=== PATIENT | female | born 1955 | race Caucasian/White ===

== ENCOUNTER 2016-08-01 16:37 | Inpatient (IN) | payer MEDICAID, OTHER ==
[~2016-08-01] VITALS: Ht 157.5 cm; Wt 53.2 kg
[~2016-08-01 16:37] MED LIST: ALPR0.25 PO; HALD50IN IM; HALO10TA PO; LISI-515 PO; PRAZ1 PO; QUET5TAB PO
[2016-08-01 16:39] VITALS: BP 162/88; PULSE 94; RESP 24; TEMP 97.7; O2SAT 94
[2016-08-01 18:19] LABS: AUTOMATED NEUTROPHIL # 3.1 TH/MM3 (1.8-7.7); BASOPHIL % 0.7 % (0.0-2.0); EOSINOPHIL # 0.1 TH/MM3 (0-0.4); EOSINOPHIL % 2.2 % (0.0-4.0); HEMATOCRIT 38.4 % (35.0-46.0); HEMO FLAGS DIFF FINAL; LYMPH % 19.8 % (9.0-44.0); LYMPHOCYTE # 0.9 TH/MM3 (1.0-4.8); MEAN CELL VOLUME 93.5 FL (80.0-100.0); MEAN CORPUSCULAR HEMOGLOBIN 32.1 PG (27.0-34.0); MEAN CORPUSCULAR HGB CONC 34.3 % (32.0-36.0); MONO % 6.6 % (0.0-8.0); NEUT % 70.7 % (16.0-70.0); PLATELET COUNT 110 TH/MM3 (150-450); RED BLOOD COUNT 4.11 MIL/MM3 (4.00-5.30); RED CELL DISTRIBUTION WIDTH 14.1 % (11.6-17.2); WHITE BLOOD COUNT 4.5 TH/MM3 (4.0-11.0)
[2016-08-01 18:22] LABS: BACTERIA, URINE RARE /hpf; BLOOD, URINE NEG (NEG); COMMENT (UR) CULT NOT INDICATED; CULTURE IF INDICATED CULT NOT INDICATED; GLUCOSE,URINE NEG (NEG); KETONE, URINE NEG (NEG); MUCUS URINE FEW /lpf (OCC); NITRITE,URINE NEG (NEG); SQUAMOUS EPITHELIAL CELL URINE 2 /hpf (0-5); URINE COLOR YELLOW (YELLW/STRAW)
[2016-08-01 18:29] LABS: AMPHETAMINE, URINE NEG (NEG); BARBITURATES, URINE NEG (NEG); COCAINE, URINE NEG (NEG)
[2016-08-01 18:44] LABS: ANION GAP 8 MEQ/L (5-15); AST (GOT) 111 U/L (15-37); BICARBONATE 25.9 MEQ/L (21.0-32.0); BLOOD UREA NITROGEN 15 MG/DL (7-18); CHLORIDE 106 MEQ/L (98-107); GLOMERULAR FILTRATION RATE 63 ML/MIN (>89); POTASSIUM 3.6 MEQ/L (3.5-5.1); SODIUM (NA) 140 MEQ/L (136-145)
[2016-08-01 18:47] LABS: ALKALINE PHOSPHATASE 115 U/L (45-117); ALT (GPT) 122 U/L (10-53); TOTAL BILIRUBIN ADULT 0.8 MG/DL (0.2-1.0)
[2016-08-01 19:00] VITALS: BP 161/97; PULSE 87; RESP 18; TEMP 99; O2SAT 97
--- NOTE | 2016-08-01 20:10 | PD ---
HPI Chief Complaint: Psychiatric Symptoms Time Seen by Provider: 20:07 Travel History International Travel<30 days: No Contact w/Intl Traveler<30days: No Traveled to known affect area: No History of Present Illness HPI 61-year-old female that presents to the ED for evaluation of psych. Patient is Croatian-speaking only and I personally asked her if she feels comfortable my Croatian and she states that she does and she was offered interpretation but she declined at this time stating that she feels comfortable my Croatian. Patient has a chronic history of schizophrenia. Patient apparently has not been able to sleep for 5 days. She feels very depressed and anxious. Per patient she used to live in [place] and since living here in [place] she's been feeling that she is getting worse. Per patient she is taking her medications but does seem to be working. Per patient she needs something to help her stab lyse herself. She has any chest pain or shortness of breath. No cuts. No other medical prongs. She does have a history of asthma in the past but denies any shortness of breath at this time. She has allergies to Anaprox, aspirin and Motrin. She denies any other medical complaints. She does to me that she sees a psychiatrist but unclear as to the name. Her symptoms appeared to be moderate and seemed to be worsening for the past couple of days. PFSH Past Medical History Asthma: Yes Blood Disorders: No Anxiety: Yes Depression: Yes Cancer: No Cardiovascular Problems: Yes (Reported hx of HTN) Chemotherapy: No Diminished Hearing: No Endocrine: No Glaucoma: No Genitourinary: No Immune Disorder: No Musculoskeletal: No Neurologic: No Psychiatric: Yes (Hx of treatment for Bipolar Disorder and Schizophrenia) Reproductive: No Respiratory: No Radiation Therapy: No Past Surgical History Abdominal Surgery: No AICD: No Arteriovenous Shunt: No Cardiac Surgery: No Ear Surgery: No Endocrine Surgery: No Eye Surgery: No Genitourinary Surgery: No Gynecologic Surgery: Yes (HYSTERECTOMY) Insulin Pump: No Joint Replacement: No Oral Surgery: No Pacemaker: No Thoracic Surgery: No Other Surgery: Yes Social History Alcohol Use: No Tobacco Use: No (ONE PACK every 3 days according to patient. ) Substance Use: No Allergies-Medications (Allergen,Severity, Reaction): Coded Allergies: Anaprox (Verified Allergy, Mild, UNKNOWN, 08/01/16) Aspirin (Verified Allergy, Mild, KILLS HER, 08/01/16) Motrin (Verified Allergy, Mild, UNKNOWN, 08/01/16) Reported Meds & Prescriptions Reported Meds & Active Scripts Active Minipress (Prazosin HCl) 1 Mg Cap 2 Mg PO Q12HR Haloperidol 10 Mg Tab 10 Mg PO BID Haldol Decanoate Inj (Haloperidol Decanoate) 50 Mg/Ml Inj 100 Mg IM Q28D 28 Days Reported Quetiapine (Quetiapine Fumarate) 50 Mg Tab 50 Mg PO DAILY Alprazolam 0.25 Mg Tab 0.25 Mg PO Q6H PRN Lisinopril 20 Mg Tab 20 Mg PO DAILY Review of Systems Except as stated in HPI: all other systems reviewed are Neg Physical Exam Narrative GENERAL: SKIN: Warm and dry. HEAD: Atraumatic. Normocephalic. EYES: Pupils equal and round. No scleral icterus. No injection or drainage. ENT: No nasal bleeding or discharge. Mucous membranes pink and moist. Tongue is midline. No uvula deviation. NECK: Trachea midline. No JVD. CARDIOVASCULAR: Regular rate and rhythm. No murmurs, S3, S4. RESPIRATORY: No accessory muscle use. Clear to auscultation. Breath sounds equal bilaterally. GASTROINTESTINAL: Abdomen soft, non-tender, nondistended. Hepatic and splenic margins not palpable. MUSCULOSKELETAL: Extremities without clubbing, cyanosis, or edema. No obvious deformities. Full range of motion of the upper and lower extremities bilaterally. Pupils pulses bilaterally. NEUROLOGICAL: Awake and alert. No obvious cranial nerve deficits. Motor grossly within normal limits. Five out of 5 muscle strength in the arms and legs. Normal speech. PSYCHIATRIC: Depressed and anxious mood and affect; insight and judgment normal. Data Data Last Documented VS Vital Signs Date Time Temp Pulse Resp B/P Pulse Ox O2 Delivery O2 Flow Rate FiO2 08/01/16 19:00 99.0 87 18 161/97 97 Room Air Orders Complete Blood Count With Diff (08/01/16 17:14) Comprehensive Metabolic Panel (08/01/16 17:14) Urinalysis - C+S If Indicated (08/01/16 17:14) Psych Screen (08/01/16 17:14) Drug Screen, Random Urine (08/01/16 17:14) Lorazepam (Ativan) (08/01/16 20:15) Labs Laboratory Tests Test 08/01/16 17:20 White Blood Count 4.5 TH/MM3 Red Blood Count 4.11 MIL/MM3 Hemoglobin 13.2 GM/DL Hematocrit 38.4 % Mean Corpuscular Volume 93.5 FL Mean Corpuscular Hemoglobin 32.1 PG Mean Corpuscular Hemoglobin 34.3 % Concent Red Cell Distribution Width 14.1 % Platelet Count 110 TH/MM3 Mean Platelet Volume 8.5 FL Neutrophils (%) (Auto) 70.7 % Lymphocytes (%) (Auto) 19.8 % Monocytes (%) (Auto) 6.6 % Eosinophils (%) (Auto) 2.2 % Basophils (%) (Auto) 0.7 % Neutrophils # (Auto) 3.1 TH/MM3 Lymphocytes # (Auto) 0.9 TH/MM3 Monocytes # (Auto) 0.3 TH/MM3 Eosinophils # (Auto) 0.1 TH/MM3 Basophils # (Auto) 0.0 TH/MM3 CBC Comment DIFF FINAL Differential Comment Urine Color YELLOW Urine Turbidity CLEAR Urine pH 6.0 Urine Specific [place] 1.013 Urine Protein NEG mg/dL Urine Glucose (UA) NEG mg/dL Urine Ketones NEG mg/dL Urine Occult Blood NEG Urine Nitrite NEG Urine Bilirubin NEG Urine Urobilinogen 2.0 MG/DL Urine Leukocyte Esterase NEG Urine RBC 1 /hpf Urine WBC 1 /hpf Urine Squamous Epithelial 2 /hpf Cells Urine Bacteria RARE /hpf Urine Mucus FEW /lpf Microscopic Urinalysis Comment CULT NOT INDICATED Sodium Level 140 MEQ/L Potassium Level 3.6 MEQ/L Chloride Level 106 MEQ/L Carbon Dioxide Level 25.9 MEQ/L Anion Gap 8 MEQ/L Blood Urea Nitrogen 15 MG/DL Creatinine 0.90 MG/DL Estimat Glomerular Filtration 63 ML/MIN Rate Random Glucose 134 MG/DL Calcium Level 8.5 MG/DL Total Bilirubin 0.8 MG/DL Aspartate Amino Transf 111 U/L (AST/SGOT) Alanine Aminotransferase 122 U/L (ALT/SGPT) Alkaline Phosphatase 115 U/L Total Protein 7.4 GM/DL Albumin 3.1 GM/DL Urine Opiates Screen NEG Urine Barbiturates Screen NEG Urine Amphetamines Screen NEG Urine Benzodiazepines Screen POS Urine Cocaine Screen NEG Urine Cannabinoids Screen NEG MDM Medical Decision Making Medical Screen Exam Complete: Yes Emergency Medical Condition: Yes Medical Record Reviewed: Yes Interpretation(s) CBC & BMP Diagram 08/01/16 17:20 LFTs within normal limits. Tox screen positive for benzos. Differential Diagnosis Depression versus suicidal ideation versus anxiety versus adjustment disorder versus mood disorder versus bipolar disorder versus schizophrenia versus paranoid disorder versus psychosis versus substance abuse versus alcohol abuse versus alcohol induced psychosis versus homicidality addition versus cutting versus personality disorder Narrative Course 61-year-old female that presents to the ED for evaluation of psych. Patient was properly examined and was found to have signs and symptoms consistent with psychiatric illness. No sign of acute medical distress. Labs were done. Labs were essentially unremarkable. Patient was medically clear. Okay to be seen by psych. Mental health screening was discussed with the patient. Diagnosis Primary Impression: Schizoaffective disorder Qualified Code: F25.1 - Schizoaffective disorder, depressive type Flex Tyler Aug 01, 2016 20:10
[2016-08-01] MEDS ORDERED: LORazepam 1 MG TAB PO ONE (20:15)
[2016-08-01] MEDS: diphenhydrAMINE HCL 50 MG CAP PO PRN (20:24)
[2016-08-01] MEDS: HALOPERIDOL 10 MG TAB PO SCH (20:24)
[2016-08-01] MEDS: PRAZOSIN HCL 1 MG CAP PO SCH (21:17)
[2016-08-02 06:50] VITALS: BP 153/72; PULSE 68; RESP 18; TEMP 97.3; O2SAT 96
[2016-08-02] MEDS: PRAZOSIN HCL 1 MG CAP PO SCH ×2 (09:00→21:00)
[2016-08-02] MEDS: HALOPERIDOL 10 MG TAB PO SCH ×2 (09:00→21:00)
[2016-08-02 11:42] VITALS: BP 137/79; PULSE 81; RESP 17; O2SAT 97
--- NOTE | 2016-08-02 11:58 | PD ---
History of Present Illness Chief Complaint: Psychiatric Symptoms Time Seen by Provider: 11:45 Travel History International Travel<30 Days: No Contact w/Intl Traveler<30days: No Known affected area: No Legal Status Legal Status: Voluntary History of Present Illness: History of Present Illness HPI 61-year-old female with history of schizoaffective disorder that presents to the ED for evaluation. Patient reports that she has not slept in 5 days,is feeling very anxious, believes her medication is not working. Daughter who accompanies her confirms the patient's complaints. As per EMR she was last hosp at [facility] on Mar 08, 2016 under the care of Dr. Pryor and at that time she was exhibiting symptoms of psychosis. Current toxicology is positive for benzos. Patient is seen. She speaks mostly Croatian. She appears very anxious and restless. Speech is clear an d logical. She denies suicidal ideation, denies hallucinatory process. Patient is monitored in J pod and she was medicated with Ativan. This morning she reports that she had difficulty sleeping but was able to sleep some. She continues to report feeling very anxious as well as continues to report that current medication are not working. Telephone call to son Yemi [phone]. He reports that his mother has been anxious, not sleeping x 5 days, refusing to eat, and has refused her medication x 1 week. She has not had follow visit with a psychiatrist since her discharge from [facility]. Son also reports she found some old medications she had saved and was taken those without her son's knowledge. He does not know what medications she was taking. He expresses concern for the safety of his children as he fears her behaviro and sym,ptoms will escalate and she has a history of becoming agitated and aggressive. PFSH Past Medical History Asthma: Yes Blood Disorders: No Anxiety: Yes Depression: Yes Cancer: No Cardiovascular Problems: Yes (Reported hx of HTN) Chemotherapy: No Diminished Hearing: No Endocrine: No Glaucoma: No Genitourinary: No Immune Disorder: No Musculoskeletal: No Neurologic: No Psychiatric: Yes (Hx of treatment for Bipolar Disorder and Schizophrenia) Reproductive: No Respiratory: No Radiation Therapy: No Past Surgical History Abdominal Surgery: No AICD: No Arteriovenous Shunt: No Cardiac Surgery: No Ear Surgery: No Endocrine Surgery: No Eye Surgery: No Genitourinary Surgery: No Gynecologic Surgery: Yes (HYSTERECTOMY) Insulin Pump: No Joint Replacement: No Oral Surgery: No Pacemaker: No Thoracic Surgery: No Other Surgery: Yes Psychiatric History Psychiatric History Hx Psychiatric Treatment: PATIENT WAS LAST ADMITTED TO [facility] FROM 03/08/16 TO 03/26/16 FOR SCHIZOPHRENIA. History of Inpatient Treatment: Yes (Multiple hospitalizations reported. ) Guns or firearms in home: No Social History Single female, lives with her son and his family. Unemployed. Hx Alcohol Use: No Hx Tobacco Use: No (ONE PACK every 3 days according to patient. ) Hx Substance Use: Yes (Last used cocaine 20 years ago.) Hx of Substance Use Treatment: No Family Psychiatric History Negative Allergies-Medications (Allergen,Severity, Reaction): Coded Allergies: Anaprox (Verified Allergy, Mild, UNKNOWN, 08/01/16) Aspirin (Verified Allergy, Mild, KILLS HER, 08/01/16) Motrin (Verified Allergy, Mild, UNKNOWN, 08/01/16) Reported Meds & Prescriptions Reported Meds & Active Scripts Active Minipress (Prazosin HCl) 1 Mg Cap 2 Mg PO Q12HR Haloperidol 10 Mg Tab 10 Mg PO BID Haldol Decanoate Inj (Haloperidol Decanoate) 50 Mg/Ml Inj 100 Mg IM Q28D 28 Days Reported Quetiapine (Quetiapine Fumarate) 50 Mg Tab 50 Mg PO DAILY Alprazolam 0.25 Mg Tab 0.25 Mg PO Q6H PRN Lisinopril 20 Mg Tab 20 Mg PO DAILY Exam Alert: Yes Parish: Person (ox4) Mood: Anxious Affect: Restricted Speech: Clear, Logical Eye Contact: Normal Memory Intact: Comment (poor) Hallucinations: Other (deneis ) Suicidal: Ideation (deneis any) Homicidal: Ideation (deneis) Insight/Judgement Fair, not impaired [facility] Medical Decision Making Medical Record Reviewed: Yes Assessment/Plan 61 year old female with history of schizoaffective disorder who comes to ED reporting not sleeping x 5 days, feeling anxious, restless, and not taking prescribed medication x 1 week. She appears to be experiencing akathisia. At this time she will be admitted to inpatient psychiatric unit for safety, stabilization and medication adjustment Orders Complete Blood Count With Diff (08/01/16 17:14) Comprehensive Metabolic Panel (08/01/16 17:14) Urinalysis - C+S If Indicated (08/01/16 17:14) Psych Screen (08/01/16 17:14) Drug Screen, Random Urine (08/01/16 17:14) Lorazepam (Ativan) (08/01/16 20:15) Haloperidol (Haldol) (08/01/16 21:00) Prazosin (Minipress) (08/01/16 21:00) Diphenhydramine (Benadryl) (08/01/16 20:15) Diet Regular Basic (08/02/16 Breakfast) Results Vital Signs Date Time Temp Pulse Resp B/P Pulse Ox O2 Delivery O2 Flow Rate FiO2 08/02/16 11:42 81 17 137/79 97 Room Air 08/02/16 06:50 97.3 68 18 153/72 96 Room Air 08/01/16 19:00 99.0 87 18 161/97 97 Room Air 08/01/16 16:39 97.7 94 24 162/88 94 Room Air Laboratory Tests Test 08/01/16 17:20 White Blood Count 4.5 Red Blood Count 4.11 Hemoglobin 13.2 Hematocrit 38.4 Mean Corpuscular Volume 93.5 Mean Corpuscular Hemoglobin 32.1 Mean Corpuscular Hemoglobin 34.3 Concent Red Cell Distribution Width 14.1 Platelet Count 110 Mean Platelet Volume 8.5 Neutrophils (%) (Auto) 70.7 Lymphocytes (%) (Auto) 19.8 Monocytes (%) (Auto) 6.6 Eosinophils (%) (Auto) 2.2 Basophils (%) (Auto) 0.7 Neutrophils # (Auto) 3.1 Lymphocytes # (Auto) 0.9 Monocytes # (Auto) 0.3 Eosinophils # (Auto) 0.1 Basophils # (Auto) 0.0 CBC Comment DIFF FINAL Differential Comment Urine Color YELLOW Urine Turbidity CLEAR Urine pH 6.0 Urine Specific [place] 1.013 Urine Protein NEG Urine Glucose (UA) NEG Urine Ketones NEG Urine Occult Blood NEG Urine Nitrite NEG Urine Bilirubin NEG Urine Urobilinogen 2.0 Urine Leukocyte Esterase NEG Urine RBC 1 Urine WBC 1 Urine Squamous Epithelial 2 Cells Urine Bacteria RARE Urine Mucus FEW Microscopic Urinalysis Comment CULT NOT INDICATED Sodium Level 140 Potassium Level 3.6 Chloride Level 106 Carbon Dioxide Level 25.9 Anion Gap 8 Blood Urea Nitrogen 15 Creatinine 0.90 Estimat Glomerular Filtration 63 Rate Random Glucose 134 Calcium Level 8.5 Total Bilirubin 0.8 Aspartate Amino Transf 111 (AST/SGOT) Alanine Aminotransferase 122 (ALT/SGPT) Alkaline Phosphatase 115 Total Protein 7.4 Albumin 3.1 Urine Opiates Screen NEG Urine Barbiturates Screen NEG Urine Amphetamines Screen NEG Urine Benzodiazepines Screen POS Urine Cocaine Screen NEG Urine Cannabinoids Screen NEG Diagnosis Primary Impression: Schizoaffective disorder Admitting Information Admitting Physician Requests: Admit (Dr. Robles) Problem Qualifiers Primary Impression: Schizoaffective disorder Qualified Code: F25.0 - Schizoaffective disorder, bipolar type [place] Aug 02, 2016 11:58
[2016-08-02] MEDS: BENZTROPINE MESYLATE 1 MG TAB PO SCH ×2 (13:00→21:00)
[2016-08-02] MEDS: LISINOPRIL 20 MG TAB PO SCH (13:00)
[2016-08-02] MEDS ORDERED: ACETAMINOPHEN 325 MG TAB PO PRN (13:00)
[2016-08-02] MEDS ORDERED: MAGNESIUM HYDROXIDE SUSP 30 ML CUP PO PRN (13:00)
[2016-08-02] MEDS ORDERED: ALUMINUM/MAGNESIUM/SIMETH 30 ML CUP PO PRN (13:00)
[2016-08-02] MEDS ORDERED: LORazepam 1 MG TAB PO PRN (18:00)
[2016-08-02 18:04] VITALS: BP 118/70; PULSE 87; RESP 18; TEMP 98.1; O2SAT 98
[2016-08-03] MEDS: diphenhydrAMINE HCL 50 MG CAP PO PRN (01:10)
[2016-08-03 06:38] VITALS: BP 121/73; PULSE 92; RESP 18; TEMP 97.5; O2SAT 100
[2016-08-03 08:27] LABS: ANION GAP 7 MEQ/L (5-15); BICARBONATE 26.8 MEQ/L (21.0-32.0); BLOOD UREA NITROGEN 18 MG/DL (7-18); CHLORIDE 106 MEQ/L (98-107); GLOMERULAR FILTRATION RATE 56 ML/MIN (>89); HDL CHOLESTEROL 84.1 MG/DL (40.0-60.0); LDL CHOLESTEROL 41 MG/DL (0-99); POTASSIUM 3.6 MEQ/L (3.5-5.1); SODIUM (NA) 140 MEQ/L (136-145)
[2016-08-03] MEDS: HALOPERIDOL 10 MG TAB PO SCH ×2 (08:34→20:43)
[2016-08-03] MEDS: BENZTROPINE MESYLATE 1 MG TAB PO SCH ×2 (08:34→20:43)
[2016-08-03] MEDS: LISINOPRIL 20 MG TAB PO SCH (08:34)
[2016-08-03] MEDS: PRAZOSIN HCL 1 MG CAP PO SCH ×2 (08:34→20:43)
[2016-08-03] MEDS ORDERED: MAGNESIUM HYDROXIDE SUSP 30 ML CUP PO PRN (10:45)
[2016-08-03] MEDS ORDERED: ACETAMINOPHEN 325 MG TAB PO PRN (10:45)
[2016-08-03] MEDS ORDERED: ALUMINUM/MAGNESIUM/SIMETH 30 ML CUP PO PRN (10:45)
[2016-08-03] MEDS ORDERED: HALOPERIDOL DECANOATE 50 MG/ML VIAL IM SCH (11:00)
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
[2016-08-03 15:55] LABS: HEMOGLOBIN A1a 0.8 %; HEMOGLOBIN A1b 0.6 %; HEMOGLOBIN Ao 88.5 %; HEMOGLOBIN F 1.1 %; HEMOGLOBIN LA1C 1.6 %
--- NOTE | 2016-08-03 16:01 | PD.CONS ---
HPI Service [facility] Consult Requested By Psychiatry team Reason for Consult Patient on antihypertensive, needing assessment Primary Care Physician No Primary Care Physician Diagnoses: History of Present Illness Patient is a 61 year old female with primary medical history of hypertension, asthma, anxiety, depression, bipolar disorder and schizophrenia who came into the hospital for lack of sleep 5 days. Patient primarily speaks Guamanian. 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 Patient states that she has been having trouble sleeping at night. Stating her condition is worsening that she is too weak to walk and has multiple falls secondary to not being able to rest. She states that she was given some medication but feels that it was too strong for her that she wants the medication to be adjusted. She also states she stopped taking the medication. According to field radio technician patient is unable to verify what kind of medication she was taking. Patient is also unable to verify what medication for high blood pressure she was taking but states she has high blood pressure. Denies pain and discomfort. Denies SOB/ dyspnea. Denies chest pain, palpitations, headaches, dizziness. Denies fevers, chills, n/v/d. Review of Systems Except as stated in HPI: all other systems reviewed are Neg Past Family Social History Allergies: Coded Allergies: Anaprox (Verified Allergy, Mild, UNKNOWN, 08/01/16) Aspirin (Verified Allergy, Mild, KILLS HER, 08/01/16) Motrin (Verified Allergy, Mild, UNKNOWN, 08/01/16) Past Medical History Hypertension Asthma Depression Anxiety Bipolar Schizophrenia Bladder problems/prolapse? Past Surgical History Hysterectomy Reported Medications Minipress (Prazosin HCl) 1 Mg Cap 2 Mg PO Q12HR Haloperidol 10 Mg Tab 10 Mg PO BID Haldol Decanoate Inj (Haloperidol Decanoate) 50 Mg/Ml Inj 100 Mg IM Q28D 28 Days Reported Quetiapine (Quetiapine Fumarate) 50 Mg Tab 50 Mg PO DAILY Alprazolam 0.25 Mg Tab 0.25 Mg PO Q6H PRN Lisinopril 20 Mg Tab 20 Mg PO DAILY Active Ordered Medications Current Medications Medications (Trade) Dose Ordered Sig/Bhargavi Route Start Time Stop Time Status Last Admin (Haldol) 10 mg BID PO 08/01/16 21:00 08/03/16 08:34 (Minipress) 2 mg Q12HR PO 08/01/16 21:00 08/03/16 08:34 (Tylenol) 650 mg Q4H PRN PO 08/02/16 13:00 (Milk Of Magnesia Liq) 30 ml DAILY PRN PO 08/02/16 13:00 (Mag-Al Plus Susp Liq) 30 ml Q6H PRN PO 08/02/16 13:00 (Prinivil) 20 mg DAILY PO 08/02/16 13:00 08/03/16 08:34 (Cogentin) 1 mg BID PO 08/03/16 21:00 (Atarax) 50 mg Q6H PRN PO 08/03/16 10:45 (Haldol Decanoate Inj) 100 mg Q28D IM 08/04/16 08:00 (Lexapro) 10 mg DAILY PO 08/04/16 09:00 Family History Unable to provide family medical history Social History Denies alcohol use Denies tobacco use Denies illicit drug use Physical Exam Vital Signs Vital Signs Date Time Temp Pulse Resp B/P Pulse Ox O2 Delivery O2 Flow Rate FiO2 08/03/16 06:38 97.5 92 18 121/73 100 08/02/16 18:04 98.1 87 18 118/70 98 Physical Exam GENERAL: This is a well-nourished, well-developed patient, in no apparent distress. SKIN: No rashes, ecchymoses or lesions. Cool and dry. HEAD: Atraumatic. Normocephalic. No temporal or scalp tenderness. EYES: Pupils equal round and reactive. No scleral icterus. No injection or drainage. ENT: Nose without bleeding. Throat without erythema. Uvula midline. Airway patent. NECK: Trachea midline. No JVD or lymphadenopathy. Supple, nontender, no meningeal signs. CARDIOVASCULAR: Regular rate and rhythm without murmurs, gallops, or rubs. RESPIRATORY: Clear to auscultation. Breath sounds equal bilaterally. No wheezes , rales, or rhonchi. GASTROINTESTINAL: Abdomen soft, non-tender, nondistended. No hepato-splenomegaly , or palpable masses. No guarding. MUSCULOSKELETAL: Extremities without clubbing, cyanosis, or edema. NEUROLOGICAL: Awake and alert. Very focused on not being able to sleep. Motor and sensory grossly within normal limits. Normal speech. Laboratory Laboratory Tests Test 08/03/16 07:13 Sodium Level 140 Potassium Level 3.6 Chloride Level 106 Carbon Dioxide Level 26.8 Anion Gap 7 Blood Urea Nitrogen 18 Creatinine 1.00 Estimat Glomerular Filtration 56 Rate Random Glucose 86 Calcium Level 8.9 Triglycerides Level 49 Cholesterol Level 135 LDL Cholesterol 41 HDL Cholesterol 84.1 Cholesterol/HDL Ratio 1.60 Result Diagram: 08/01/16 1720 08/03/16 0713 Assessment and Plan Problem List: (1) Schizoaffective disorder, bipolar type ICD Code: F25.0 Status: Acute (2) HTN (hypertension) ICD Code: I10 Status: Chronic (3) Female bladder prolapse ICD Code: N81.10 Status: Chronic Assessment and Plan Patient is a 61 year old female with primary medical history of hypertension, asthma, anxiety, depression, bipolar disorder and schizophrenia who came into the hospital for lack of sleep 5 days. Patient primarily speaks Guamanian. Stratus interpretation was use, field radio technician [place] [id number]. Patient states that she has been having trouble sleeping at night. Stating her condition is worsening that she is too weak to walk and has multiple falls secondary to not being able to rest. She states that she was given some medication but feels that it was too strong for her that she wants the medication to be adjusted. She also states she stopped taking the medication. She is now admitted to inpatient psychiatry unit for further evaluation. Consulted for medical management. Schizoaffective disorder, bipolar type Insomnia - Managed by psychiatry team HTN - Continue home meds on lisinopril 20 mg by mouth daily, Minipress 2 mg every 12 - may also be used primarily secondary to PTSD? - Monitor BP trend Elevated AST and ALT - Previous admission labs reviewed. Patient has elevated AST and ALT since 2017. - Check hepatitis panel DVT prop ambulatory Thank you for this consultation. We will follow patient with you. Written by Linda Downs, acting as scribe for Dr. Be on 08/03/16 at 16: 00. All or portions of this note were transcribed by scribe [Linda Downs]. I, Dr. Nicki Be personally performed the history, physical exam, and medical decision making; and confirmed the accuracy of the information in the transcribed note. Authenticated by Dr. Nicki Be on 08/03/16 at 16:04. Code Status Full code Discussed Condition With Patient, nursing Linda Herrera Aug 03, 2016 16:01 Nicki Be MD Aug 03, 2016 16:04
[2016-08-03 17:57] VITALS: BP 138/68; PULSE 67; RESP 18; TEMP 98.6; O2SAT 97
[2016-08-03 21:01] LABS: BACTERIA, URINE RARE /hpf; BLOOD, URINE NEG (NEG); COMMENT (UR) CULT NOT INDICATED; CULTURE IF INDICATED CULT NOT INDICATED; GLUCOSE,URINE NEG (NEG); HYALINE CAST, URINE 1 /lpf (RARE); KETONE, URINE NEG (NEG); NITRITE,URINE NEG (NEG); PH, URINE 7.5 (5.0-8.5); SQUAMOUS EPITHELIAL CELL URINE 1 /hpf (0-5); URINE COLOR YELLOW (YELLW/STRAW)
[2016-08-03] MEDS: hydrOXYzine HCL 50 MG TAB PO PRN (22:50)
[2016-08-04 05:59] VITALS: BP 122/84; PULSE 73; RESP 18; TEMP 97.3; O2SAT 97
[2016-08-04] MEDS ORDERED: HALOPERIDOL DECANOATE 50 MG/ML VIAL IM SCH (08:00)
[2016-08-04 08:17] LABS: ALKALINE PHOSPHATASE 119 U/L (45-117); ALT (GPT) 103 U/L (10-53); ANION GAP 9 MEQ/L (5-15); AST (GOT) 91 U/L (15-37); BICARBONATE 22.8 MEQ/L (21.0-32.0); BLOOD UREA NITROGEN 16 MG/DL (7-18); CHLORIDE 111 MEQ/L (98-107); GLOMERULAR FILTRATION RATE 83 ML/MIN (>89); POTASSIUM 3.6 MEQ/L (3.5-5.1); SODIUM (NA) 143 MEQ/L (136-145); TOTAL BILIRUBIN ADULT 0.7 MG/DL (0.2-1.0)
[2016-08-04] MEDS: ESCITALOPRAM OXALATE 10 MG TAB PO SCH (09:00)
[2016-08-04] MEDS: BENZTROPINE MESYLATE 1 MG TAB PO SCH ×2 (09:00→20:30)
[2016-08-04] MEDS: LISINOPRIL 20 MG TAB PO SCH (09:00)
[2016-08-04] MEDS: HALOPERIDOL 10 MG TAB PO SCH ×2 (09:00→20:30)
[2016-08-04] MEDS: PRAZOSIN HCL 1 MG CAP PO SCH ×2 (09:00→20:30)
--- NOTE | 2016-08-04 14:00 | HHI.PYPN ---
Subjective Remarks Patient seen today with nurse Karla, chart review. There continues difficulty with communication due to patient's only speaking Bulgarian. Having a difficult time understanding my questions in Turkmen Patient did receive her Haldol decanoate this morning, has been compliant with medications. Patient states her paranoia and vigilance have decreased. There is still anxiety related to her prior noncompliance medication. Patient continues to isolate the very little interaction with staff or other patient's. Review of Systems Except as stated in HPI: all other systems reviewed are Neg Objective Alert: Yes [place]: Person (ox4) Mood: Anxious Affect: Restricted Memory Intact: Comment (poor) Hallucinations: Other (deneis ) Delusions: Yes (vague paranoia) Delusion Type: Paranoid Suicidal: Ideation (deneis any) Homicidal: Ideation (deneis) Insight/Judgement Very poor Labs Test 08/03/16 08/04/16 16:36 06:52 Urine Color YELLOW Urine Turbidity CLEAR Urine pH 7.5 Urine Specific [place] 1.011 Urine Protein NEG mg/dL Urine Glucose (UA) NEG mg/dL Urine Ketones NEG mg/dL Urine Occult Blood NEG Urine Nitrite NEG Urine Bilirubin NEG Urine Urobilinogen LESS THAN 2.0 MG/DL Urine Leukocyte Esterase NEG Urine WBC 1 /hpf Urine Squamous Epithelial 1 /hpf Cells Urine Amorphous Sediment RARE Urine Bacteria RARE /hpf Urine Hyaline Casts 1 /lpf Microscopic Urinalysis Comment CULT NOT INDICATED Sodium Level 143 MEQ/L Potassium Level 3.6 MEQ/L Chloride Level 111 MEQ/L Carbon Dioxide Level 22.8 MEQ/L Anion Gap 9 MEQ/L Blood Urea Nitrogen 16 MG/DL Creatinine 0.71 MG/DL Estimat Glomerular Filtration 83 ML/MIN Rate Random Glucose 75 MG/DL Calcium Level 8.3 MG/DL Total Bilirubin 0.7 MG/DL Aspartate Amino Transf 91 U/L (AST/SGOT) Alanine Aminotransferase 103 U/L (ALT/SGPT) Alkaline Phosphatase 119 U/L Total Protein 6.4 GM/DL Albumin 2.9 GM/DL Free Thyroxine 1.50 NG/DL Thyroid Stimulating Hormone 3.870 uIU/ML 3rd Gen Vitals/IOs Vital Signs Date Time Temp Pulse Resp B/P Pulse Ox O2 Delivery O2 Flow Rate FiO2 08/04/16 05:59 97.3 73 18 122/84 97 08/02/16 11:42 Room Air Assessment & Plan Problem List: (1) Schizoaffective disorder, bipolar type ICD Code: F25.0 Assessment & Plan Estimated LOS: days patient continues depressed with vague psychotic features mild paranoia. Compliant medications. For now continue treatment Justification for Cont. Inpt. At this time patient decompensate if placed in a lower level of care Discharge Planning To be determined Request HC Surrog/Guard Advoc?: No Adam Umanzor MD Aug 04, 2016 14:00
[2016-08-04 16:30] VITALS: BP 126/76; PULSE 68; RESP 16; TEMP 98.2; O2SAT 98
[2016-08-04] MEDS: hydrOXYzine HCL 50 MG TAB PO PRN (20:30)
[2016-08-05 05:25] VITALS: BP 108/61; PULSE 72; RESP 17; TEMP 99.4; O2SAT 96
[2016-08-05] MEDS: BENZTROPINE MESYLATE 1 MG TAB PO SCH ×2 (09:28→21:30)
[2016-08-05] MEDS: HALOPERIDOL 10 MG TAB PO SCH ×2 (09:28→21:30)
[2016-08-05] MEDS: LISINOPRIL 20 MG TAB PO SCH (09:28)
[2016-08-05] MEDS: ESCITALOPRAM OXALATE 10 MG TAB PO SCH (09:28)
[2016-08-05] MEDS: PRAZOSIN HCL 1 MG CAP PO SCH ×2 (09:28→21:31)
--- NOTE | 2016-08-05 13:18 | HHI.PYPN ---
Subjective Remarks Patient seen in her room with floor staff, compliant medications, patient calm cooperative still difficulty with the language but she appears to understand her somewhat today. She is compliant with her medications now does denies suicidality and is shaking her head that she does not hear voices. We need to contact patient's family to see about discharge plans if not today perhaps tomorrow if arrangements can be made Review of Systems Except as stated in HPI: all other systems reviewed are Neg Objective Alert: Yes [place]: Person (ox4) Mood: Anxious Affect: Restricted Memory Intact: Comment (poor) Hallucinations: Other Delusions: Yes (vague paranoia) Delusion Type: Paranoid (decreasing) Suicidal: Ideation (deneis any) Homicidal: Ideation (deneis) Insight/Judgement Very poor Vitals/IOs Vital Signs Date Time Temp Pulse Resp B/P Pulse Ox O2 Delivery O2 Flow Rate FiO2 08/05/16 05:25 99.4 72 17 108/61 96 08/02/16 11:42 Room Air Intake and Output 08/04/16 08/04/16 08/05/16 08:00 16:00 00:00 Intake Total 360 ml Balance 360 ml Assessment & Plan Problem List: (1) Schizoaffective disorder, bipolar type ICD Code: F25.0 Assessment & Plan Estimated LOS: days patient continue somewhat depressed though appears to be responding to medication, psychosis appears to be diminishing. Need to contact patient's family to discuss discharge plans Justification for Cont. Inpt. At this time patient decompensate placed in a lower level of care Discharge Planning To be determined Request HC Surrog/Guard Advoc?: No Adam Umanzor MD Aug 05, 2016 13:18
--- NOTE | 2016-08-05 14:56 | HHI.PR ---
Subjective Remarks Follow-up visit HTN, insomnia, bipolar, schizophrenia. Patient seen today. Appears calm and smiling. Denies pain and discomfort. Denies SOB/ dyspnea. Denies chest pain, palpitations, headaches, dizziness. Denies fevers, chills, n/ v/d. Objective Vitals Vital Signs Date Time Temp Pulse Resp B/P Pulse Ox O2 Delivery O2 Flow Rate FiO2 08/05/16 05:25 99.4 72 17 108/61 96 08/04/16 16:30 98.2 68 16 126/76 98 I/O 08/04/16 08/04/16 08/04/16 08/05/16 08/05/16 08/05/16 07:00 15:00 23:00 07:00 15:00 23:00 Intake Total 360 ml Balance 360 ml Intake Oral 360 ml Result Diagram: 08/01/16 1720 08/04/16 0652 Objective Remarks GENERAL: This is a petite, well-developed patient, in no apparent distress. SKIN: No rashes, ecchymoses or lesions. Cool and dry. HEAD: Atraumatic. Normocephalic. No temporal or scalp tenderness. EYES: Pupils equal round and reactive. No scleral icterus. No injection or drainage. ENT: Nose without bleeding. Throat without erythema. Uvula midline. Airway patent. NECK: Trachea midline. No JVD or lymphadenopathy. Supple, nontender, no meningeal signs. CARDIOVASCULAR: Regular rate and rhythm without murmurs, gallops, or rubs. RESPIRATORY: Clear to auscultation. Breath sounds equal bilaterally. No wheezes , rales, or rhonchi. GASTROINTESTINAL: Abdomen soft, non-tender, nondistended. No hepato-splenomegaly , or palpable masses. No guarding. MUSCULOSKELETAL: Extremities without clubbing, cyanosis, or edema. NEUROLOGICAL: Awake and alert. Calm. Motor and sensory grossly within normal limits. Normal speech. A/P Problem List: (1) Schizoaffective disorder, bipolar type ICD Code: F25.0 Status: Acute (2) HTN (hypertension) ICD Code: I10 Status: Chronic (3) Female bladder prolapse ICD Code: N81.10 Status: Chronic Assessment and Plan Patient is a 61 year old female with primary medical history of hypertension, asthma, anxiety, depression, bipolar disorder and schizophrenia who came into the hospital for lack of sleep 5 days. Patient primarily speaks Slovenian. 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 Patient states that she has been having trouble sleeping at night. Stating her condition is worsening that she is too weak to walk and has multiple falls secondary to not being able to rest. She states that she was given some medication but feels that it was too strong for her that she wants the medication to be adjusted. She also states she stopped taking the medication. She is now admitted to inpatient psychiatry unit for further evaluation. Consulted for medical management. Schizoaffective disorder, bipolar type Insomnia - Managed by psychiatry team HTN - Continue home meds on lisinopril 20 mg by mouth daily, Minipress 2 mg every 12 - may also be used primarily secondary to PTSD? - Monitor BP trend Elevated AST and ALT - Previous admission labs reviewed. Patient has elevated AST and ALT since 2006. - Hx Hep C? Prior history of cocaine use - Check Hepatitis panel. If positive, will need to follow up GI or outpatient interviewing clerk as an outpatient. DVT prop ambulatory Discussed with patient, nursing Stable from Hospitalist standpoint. We will sign off. Reconsult as needed. Written by Linda Downs, acting as scribe for Dr. Be on 08/05/16 at 14: 55. All or portions of this note were transcribed by scribe [Linda Downs]. I, Dr. Nicki Be personally performed the history, physical exam, and medical decision making; and confirmed the accuracy of the information in the transcribed note. Authenticated by Dr. Nicki Be on 08/05/16 at 1500. Linda Herrera Aug 05, 2016 14:56 Nicki Be MD Aug 05, 2016 20:59
[2016-08-05] MEDS: hydrOXYzine HCL 50 MG TAB PO PRN (21:30)
[2016-08-05 21:52] VITALS: BP 138/74; PULSE 107; RESP 18; TEMP 98.8; O2SAT 98
[2016-08-06 06:25] VITALS: BP 140/72; PULSE 71; RESP 16; TEMP 98.5; O2SAT 93
[2016-08-06] MEDS: HALOPERIDOL 10 MG TAB PO SCH ×2 (09:46→20:07)
[2016-08-06] MEDS: PRAZOSIN HCL 1 MG CAP PO SCH ×2 (09:46→20:08)
[2016-08-06] MEDS: BENZTROPINE MESYLATE 1 MG TAB PO SCH ×2 (09:46→20:07)
[2016-08-06] MEDS: LISINOPRIL 20 MG TAB PO SCH (09:46)
[2016-08-06] MEDS: ESCITALOPRAM OXALATE 10 MG TAB PO SCH (09:46)
[2016-08-06] MEDS ORDERED: HALO10TA PO (10:09)
[2016-08-06] MEDS ORDERED: ESCI10TA PO (10:09)
[2016-08-06] MEDS ORDERED: BENZ1TAB PO (10:09)
[2016-08-06] MEDS ORDERED: LISI-515 PO (10:09)
[2016-08-06] MEDS ORDERED: PRAZ1 PO (10:09)
[2016-08-06] MEDS ORDERED: HALD50IN IM (10:09)
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
== END 2016-08-06 20:20 | disposition home or self-care (01) | DRG 885 ==
LOC: NEPJ 16:37 → NEDA 08-02 12:15 → H260 08-02 16:06
PROVIDERS: ADMIT Psychiatry & Neurology Psychiatry; ATTEND Psychiatry & Neurology Psychiatry
DX: F25.0 Schizoaffective disorder, bipolar type (principal); R74.8 Abnormal levels of other serum enzymes; I10 Essential (primary) hypertension; Z88.6 Allergy status to analgesic agent
CPT/HCPCS: 80048; 80053; 80061; 80074; 80307; 81001; 83036; 84439; 84443; 85025; 99284; J1631; Q0163

== ENCOUNTER 2017-03-14 22:31 | Inpatient (IN) | payer MEDICAID, OTHER ==
[~2017-03-14 22:31] MED LIST changes: -ALPR0.25 PO; +BENZ1TAB PO; +ESCI10TA PO
[2017-03-14] MEDS ORDERED: NALOXONE HCL 0.4 MG/ML AMP IV PUSH PRN (23:00)
[2017-03-14] MEDS ORDERED: POTASSIUM CHLORIDE 20 MEQ CONTROLLED RELEASE TAB PO ONE (23:00)
[2017-03-14] MEDS ORDERED: SODIUM CHLORIDE 0.9% FLUSH 10 ML FLUSH IV FLUSH PRN (23:00)
[2017-03-14] MEDS: NS + KCL 20 MEQ INJ 1,000 ML IV SCH (23:11)
[2017-03-15] VITALS: BP 112/78; PULSE 88; RESP 20; TEMP 98; O2SAT 93
[2017-03-15 01:18] LABS: CKMB 9.6 NG/ML (0.5-3.6)
[2017-03-15 06:42] LABS: AUTOMATED NEUTROPHIL # 6.7 TH/MM3 (1.8-7.7); BASOPHIL % 0.3 % (0.0-2.0); EOSINOPHIL # 0.2 TH/MM3 (0-0.4); EOSINOPHIL % 2.4 % (0.0-4.0); HEMATOCRIT 36.7 % (35.0-46.0); HEMO FLAGS DIFF FINAL; LYMPH % 16.1 % (9.0-44.0); LYMPHOCYTE # 1.4 TH/MM3 (1.0-4.8); MEAN CELL VOLUME 92.1 FL (80.0-100.0); MEAN CORPUSCULAR HEMOGLOBIN 32.2 PG (27.0-34.0); MONO % 7.8 % (0.0-8.0); NEUT % 73.4 % (16.0-70.0); PLATELET COUNT 140 TH/MM3 (150-450); RED BLOOD COUNT 3.98 MIL/MM3 (4.00-5.30); RED CELL DISTRIBUTION WIDTH 13.9 % (11.6-17.2)
[2017-03-15 06:53] LABS: POTASSIUM 3.3 MEQ/L (3.5-5.1)
[2017-03-15] MEDS: NS + KCL 20 MEQ INJ 1,000 ML IV SCH ×3 (07:04→22:56)
[2017-03-15 07:17] LABS: CALCIUM-PROTEIN CORRECTED 7.8 MG/DL (8.5-10.1); TOTAL BILIRUBIN ADULT 1.5 MG/DL (0.2-1.0)
[2017-03-15 08:00] VITALS: BP 156/79; PULSE 77; RESP 22; TEMP 97.2; O2SAT 95
[2017-03-15] MEDS: SODIUM CHLORIDE 0.9% FLUSH 10 ML FLUSH IV FLUSH SCH ×2 (08:21→21:00)
[2017-03-15] MEDS ORDERED: POTASSIUM CHLORIDE 10 MEQ CONTROLLED RELEASE TAB PO ONE (09:00)
[2017-03-15 09:11] LABS: CKMB 7.1 NG/ML (0.5-3.6)
[2017-03-15] MEDS: CALCIUM CARBONATE 1.25 GM (CA 500 MG) TAB PO SCH ×2 (10:02→21:14)
--- NOTE | 2017-03-15 11:47 | HHI.HP ---
[facility] Service [facility] Primary Care Physician Unknown Admission Diagnosis Diagnoses: Travel History International Travel<30 Days: No Contact w/Intl Traveler <30 Da: No Traveled to Known Affected Are: No History of Present Illness This is a 62-year-old female with past medical history schizoaffective disorder, hypertension who presented to the ER for evaluation of falling times twice. Patient is Portuguese-speaking. Per the ER documentation she also had altered mental status however the patient denies any confusion. The patient complains of left shoulder pain left arm pain. She fell twice. She denied any head trauma. She did have a headache yesterday but it is resolved today. The patient lives with her son. She is supposed to be on Haldol however the patient states she does not take it as she does not think she has schizoaffective disorder. The patient denies drug use or alcohol use. Patient denies chest pain or pressure. No syncope. No pedal edema. Denies shortness of breath. Denies fever or chills. Patient states she has poor balance and cannot walk well. Patient was found to have elevation of creatinine kinase as well as hypokalemia in the emergency department. Imaging of her chest spine hips and left shoulder were all negative for acute findings. Patient was admitted to the hospital for rhabdomyolysis. Review of Systems ROS Limitations: Poor Historian Constitutional: DENIES: Fever, Chills Eyes: DENIES: Blurred vision, Diplopia Ears, nose, mouth, throat: DENIES: Hearing loss, Running Nose Respiratory: DENIES: Cough, Shortness of breath Cardiovascular: DENIES: Palpitations, Syncope, Lower Extremity Edema Gastrointestinal: DENIES: Abdominal pain, Nausea, Vomiting Genitourinary: DENIES: Urinary frequency, Dysuria Musculoskeletal: COMPLAINS OF: Muscle aches, Back pain, Neck pain Integumentary: DENIES: Pruritus, Rash Hematologic/lymphatic: DENIES: Lymphadenopathy Neurologic: COMPLAINS OF: Abnormal gait, DENIES: Headache Psychiatric: DENIES: Confusion, Hallucinations, Suicidal Ideation, Homicidal Ideation, Delusions Past Family Social History Past Medical History HTN Hepatitis C virus Chronic Pain hip/ neck Recurrent UTI Prolapsed bladder Schizoaffective disorder and history of psychosis with psychiatric hospitalizations Thrombocytopenia AST elevation Remote history of cocaine use Asthma/COPD Past Surgical History C4 to 5 ACDF Reported Medications Note patient states she takes only Xanax and her blood pressure medications. Allergies Coded Allergies Type Severity Reaction Last Updated Verified aspirin Allergy Mild KILLS HER 03/14/17 No ibuprofen Allergy Mild UNKNOWN 03/14/17 No naproxen Allergy Mild UNKNOWN 03/14/17 No Active Scripts Medications Dose Route/Sig Max Daily Dose Days Date Category Dose Instructions Minipress (Prazosin HCl) 1 Mg Cap 2 Mg PO Q12HR 08/06/16 Rx Lisinopril 20 Mg Tab 20 Mg PO DAILY 08/06/16 Rx Haloperidol 10 Mg Tab 10 Mg PO BID 08/06/16 Rx Haldol Decanoate Inj (Haloperidol Decanoate) 50 Mg/Ml Inj 100 Mg IM Q28D 08/06/16 Rx Next injection due 09/01/16 Escitalopram (Escitalopram Oxalate) 10 Mg Tab 10 Mg PO DAILY 08/06/16 Rx Minipress (Prazosin HCl) 1 Mg Cap 2 Mg PO Q12HR 03/26/16 Rx Haloperidol 10 Mg Tab 10 Mg PO BID 03/26/16 Rx Haldol Decanoate Inj (Haloperidol Decanoate) 50 Mg/Ml Inj 100 Mg IM Q28D 28 03/26/16 Rx Quetiapine (Quetiapine Fumarate) 50 Mg Tab 50 Mg PO DAILY 03/08/16 Reported Allergies: Coded Allergies: aspirin (Unverified Allergy, Mild, KILLS HER, 03/14/17) ibuprofen (Unverified Allergy, Mild, UNKNOWN, 03/14/17) naproxen (Unverified Allergy, Mild, UNKNOWN, 03/14/17) Family History Father had lung cancer Social History Smokes one pack of cigarettes per week for 35 years Denies any alcohol use or drug use She lives with her son Physical Exam Vital Signs Vital Signs Date Time Temp Pulse Resp B/P (MAP) Pulse Ox O2 Delivery O2 Flow Rate FiO2 03/15/17 08:00 97.2 77 22 156/79 (104) 95 03/15/17 00:00 98.0 88 20 112/78 (89) 93 Physical Exam GENERAL: Well-nourished, well-developed female patient who appears weathered a much older than her chronologic age patient. SKIN: Warm and dry. HEAD: Normocephalic. EYES: No scleral icterus. No injection or drainage. NECK: Supple, trachea midline. No JVD or lymphadenopathy. CARDIOVASCULAR: Regular rate and rhythm without murmurs, gallops, or rubs. RESPIRATORY: Breath sounds equal bilaterally. Clear to auscultation bilaterally. No accessory muscle use. GASTROINTESTINAL: Abdomen soft, non-tender, nondistended. EXTREMITIES: No cyanosis, or edema. Patient has small laceration on her left arm. NEUROLOGICAL: Awake, alert, and oriented x 3. Non-focal. Patient has rhythmic nodding of her head which she appears unable to control. Patient has 3 out of 5 strength in upper extremities as well as lower extremities. Unable to abduct shoulders past 90. Laboratory Laboratory Tests Test 03/15/17 00:00 03/15/17 05:20 Total Creatine Kinase 3461 2659 Creatine Kinase MB 9.6 7.1 Creatine Kinase MB % 0.3 0.3 Troponin I 0.10 0.07 White Blood Count 9.0 Red Blood Count 3.98 Hemoglobin 12.8 Hematocrit 36.7 Mean Corpuscular Volume 92.1 Mean Corpuscular Hemoglobin 32.2 Mean Corpuscular Hemoglobin Concent 35.0 Red Cell Distribution Width 13.9 Platelet Count 140 Mean Platelet Volume 8.4 Neutrophils (%) (Auto) 73.4 Lymphocytes (%) (Auto) 16.1 Monocytes (%) (Auto) 7.8 Eosinophils (%) (Auto) 2.4 Basophils (%) (Auto) 0.3 Neutrophils # (Auto) 6.7 Lymphocytes # (Auto) 1.4 Monocytes # (Auto) 0.7 Eosinophils # (Auto) 0.2 Basophils # (Auto) 0.0 CBC Comment DIFF FINAL Differential Comment Blood Urea Nitrogen 17 Creatinine 0.83 Random Glucose 74 Total Protein 6.3 Albumin 2.6 Calcium Level 7.4 Alkaline Phosphatase 102 Aspartate Amino Transf (AST/SGOT) 153 Alanine Aminotransferase (ALT/SGPT) 95 Total Bilirubin 1.5 Sodium Level 141 Potassium Level 3.3 Chloride Level 107 Carbon Dioxide Level 25.0 Anion Gap 9 Estimat Glomerular Filtration Rate 69 Protein Corrected Calcium 7.8 Magnesium Level 1.6 Result Diagram: 03/15/1751903/15/17519 Imaging Chest x-ray revealed no acute findings Head CT without acute findings to show mild cerebral atrophy and moderate severity periventricular white matter low attenuation characteristic of chronic microvascular ischemia CT spine was negative for acute abnormality Hip x-ray negative Shoulder x-ray negative Caprini VTE Risk Assessment Caprini VTE Risk Assessment: No/Low Risk (score <= 1) Caprini Risk Assessment Model Point Value = 1 Point Value = 2 Point Value = 3 Point Value = 5 Age 41-60 Minor surgery BMI > 25 kg/m2 Swollen legs Varicose veins or History of unexplained or recurrent spontaneous Oral contraceptives or hormone replacement Sepsis (< 1 month) Serious lung disease, including pneumonia (< 1 month) Abnormal pulmonary function Acute myocardial infarction Congestive heart failure (< 1 month) History of inflammatory bowel disease Medical patient at bed rest Age 61-74 Arthroscopic surgery Major open surgery (> 45 min) Laparoscopic surgery (> 45 min) Malignancy Confined to bed (> 72 hours) Immobilizing plaster cast Central venous access Age >= 75 History of VTE Family history of VTE Factor V Leiden Prothrombin [id number] Lupus anticoagulant Anticardiolipin antibodies Elevated serum homocysteine Heparin-induced thrombocytopenia Other congenital or acquired thrombophilia Stroke (< 1 month) Elective arthroplasty Hip, pelvis, or leg fracture Acute spinal cord injury (< 1 month) Prophylaxis Regimen Total Risk Factor Score Risk Level Prophylaxis Regimen 0-1 Low Early ambulation 2 Moderate Order ONE of the following: *Sequential Compression Device (SCD) *Heparin 5000 units SQ BID 3-4 Higher Order ONE of the following medications: *Heparin 5000 units SQ TID *Enoxaparin/Lovenox 40 mg SQ daily (WT < 150 kg, CrCl > 30 mL/min) *Enoxaparin/Lovenox 30 mg SQ daily (WT < 150 kg, CrCl > 10-29 mL/min) *Enoxaparin/Lovenox 30 mg SQ BID (WT < 150 kg, CrCl > 30 mL/min) AND/OR *Sequential Compression Device (SCD) 5 or more Highest Order ONE of the following medications: *Heparin 5000 units SQ TID (Preferred with Epidurals) *Enoxaparin/Lovenox 40 mg SQ daily (WT < 150 kg, CrCl > 30 mL/min) *Enoxaparin/Lovenox 30 mg SQ daily (WT < 150 kg, CrCl > 10-29 mL/min) *Enoxaparin/Lovenox 30 mg SQ BID (WT < 150 kg, CrCl > 30 mL/min) AND *Sequential Compression Device (SCD) Assessment and Plan Problem List: (1) Disequilibrium ICD Code: R42 - Dizziness and giddiness Status: Acute (2) Rhabdomyolysis ICD Code: M62.82 - Rhabdomyolysis Status: Acute (3) Transaminitis ICD Code: R74.0 - Nonspecific elevation of levels of transaminase and lactic acid dehydrogenase [LDH] Status: Acute (4) Hypokalemia ICD Code: E87.6 - Hypokalemia Status: Acute (5) Hypocalcemia ICD Code: E83.51 - Hypocalcemia Status: Acute (6) Thrombocytopenia ICD Code: D69.6 - Thrombocytopenia, unspecified (7) Tardive dyskinesia ICD Code: G24.01 - Drug induced subacute dyskinesia (8) HTN (hypertension) ICD Code: I10 - Essential (primary) hypertension Status: Chronic (9) Schizoaffective disorder, bipolar type ICD Code: F25.0 - Schizoaffective disorder, bipolar type Status: Acute (10) Fall ICD Code: W19.XXXA - Unspecified fall, initial encounter (11) Generalized weakness ICD Code: R53.1 - Weakness Assessment and Plan Rhabdomyolysis - unclear etiology possibly secondary to dehydration versus drug effect. We'll continue with IV fluids. Renal function is stable. Trend total CK. Transaminitis - appears to be a chronic issue for her. Denies history of alcohol use. She does have hepatitis C virus. We'll repeat labs in the morning. Generalized weakness with poor balance. - Consult physical therapy. She may require custodial facility. Hypokalemia and hypocalcemia - we'll continue repletion and follow electrolytes. HTN -uncontrolled. We'll resume lisinopril and prazosin. Chronic Pain hip/ neck - use Lortab as needed for pain. Schizoaffective disorder and history of psychosis with psychiatric hospitalizations - noncompliant with medications. Denies suicidal homicidal ideation or hallucinations. Patient has elevated LFTs as well as rhabdomyolysis. Will consult psychiatry for assistance with her psychiatric medications. Probable tardive dyskinesia of the neck. Thrombocytopenia - appears to be dating back to 2015. Monitor CBC. Remote history of cocaine use - check urine drug screen. DVT prophylaxis with SCDs Katie Monique MD Mar 15, 2017 11:47
[2017-03-15 12:00] VITALS: BP 152/86; PULSE 83; RESP 20; TEMP 97.4; O2SAT 96
[2017-03-15] MEDS: PRAZOSIN HCL 1 MG CAP PO SCH ×2 (13:06→21:14)
[2017-03-15] MEDS: LISINOPRIL 20 MG TAB PO SCH (13:06)
[2017-03-15] MEDS: ESCITALOPRAM OXALATE 10 MG TAB PO SCH (13:06)
[2017-03-15] MEDS ORDERED: ONDANSETRON HCL 4 MG/2 ML VIAL IV PUSH PRN (15:30)
[2017-03-15] MEDS ORDERED: ACETAMINOPHEN 325 MG TAB PO PRN (15:30)
[2017-03-15 16:00] VITALS: BP 122/71; PULSE 90; RESP 18; TEMP 98.3; O2SAT 96
--- NOTE | 2017-03-15 19:53 | EKG ---
Date Performed: 03/14/2017 Time Performed: 23:01:04 PTAGE: 62 years EKG: NORMAL Sinus rhythm INCOMPLETE RIGHT BUNDLE BRANCH BLOCK LEFT ANTERIOR FASCICULAR BLOCK NONSPECIFIC ST TWAVE CHANGES Com pared to prior tracing no significant change ABNORMAL ECG PREVIOUS TRACING : 12/08/2006 07.31 DOCTOR: Nadya Ba Interpretating Date/Time 03/15/2017 19:51:31
--- NOTE | 2017-03-15 19:55 | EKG ---
Date Performed: 03/15/2017 Time Performed: 04:32:52 PTAGE: 62 years EKG: NORMAL Sinus rhythm INCOMPLETE RIGHT BUNDLE BRANCH BLOCK LEFT ANTERIOR FASCICULAR BLOCK NONSPECIFIC ST TWAVE CHANGES. Co mpared to prior tracing no significant change ABNORMAL ECG PREVIOUS TRACING : 03/14/2017 23.01 DOCTOR: Nadya Ba Interpretating Date/Time 03/15/2017 19:54:25
[2017-03-15 20:00] VITALS: BP 135/82; PULSE 77; PULSE 89; RESP 20; TEMP 98.8; O2SAT 98
[2017-03-16] VITALS (7 sets, daily range): BP systolic 152–187; BP diastolic 87–109; PULSE 88–101; RESP 16–24; TEMP 97.5–98.9; O2SAT 94–97
[2017-03-16] MEDS: NS + KCL 20 MEQ INJ 1,000 ML IV SCH (06:35)
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
[2017-03-16] MEDS: LISINOPRIL 20 MG TAB PO SCH (08:23)
[2017-03-16] MEDS: ESCITALOPRAM OXALATE 10 MG TAB PO SCH (08:23)
[2017-03-16] MEDS: CALCIUM CARBONATE 1.25 GM (CA 500 MG) TAB PO SCH ×2 (08:24→20:52)
[2017-03-16] MEDS: SODIUM CHLORIDE 0.9% FLUSH 10 ML FLUSH IV FLUSH SCH ×2 (08:24→20:52)
[2017-03-16] MEDS: PRAZOSIN HCL 1 MG CAP PO SCH ×2 (08:24→20:52)
[2017-03-16 08:58] LABS: CKMB 4.6 NG/ML (0.5-3.6)
--- NOTE | 2017-03-16 11:23 | HHI.FF ---
Face to Face Verification Diagnosis: (1) Rhabdomyolysis (2) Generalized weakness (3) Schizoaffective disorder, bipolar type Physical Therapy Order: Evaluate and Treat, Improve ambulation, Strength and gait training Home Health Nursing Order: Medical education Signs/symptoms of disease process Nursing assessment with vital signs I have seen patient Sarai Lezama on 03/16/17. My clinical findings support the need for the requested home health care services because: Deconditioned w/ increased weakness Limited ability to care for self I certify that my clinical findings support that this patient is homebound because: Unsteady gait/balance Unsafe to leave home unassisted Irwin Edwards Mar 16, 2017 11:23
[2017-03-16 12:18] LABS: ALKALINE PHOSPHATASE 96 U/L (45-117); ALT (GPT) 100 U/L (10-53); ANION GAP 8 MEQ/L (5-15); AST (GOT) 170 U/L (15-37); BICARBONATE 20.6 MEQ/L (21.0-32.0); BLOOD UREA NITROGEN 16 MG/DL (7-18); CHLORIDE 112 MEQ/L (98-107); GLOMERULAR FILTRATION RATE 85 ML/MIN (>89); POTASSIUM 4.2 MEQ/L (3.5-5.1); SODIUM (NA) 141 MEQ/L (136-145); TOTAL BILIRUBIN ADULT 1.5 MG/DL (0.2-1.0)
--- NOTE | 2017-03-16 14:02 | HHI.PR ---
Subjective Remarks Patient says she is feeling okay today. She reports left-sided shoulder pain worse with movement started on Tuesday. Denies any chest pain. Denies any nausea or vomiting. Discussed with nurse who will verify midline list with family and pharmacy. Objective Vital Signs Date Time Temp Pulse Resp B/P (MAP) Pulse Ox O2 Delivery O2 Flow Rate FiO2 03/16/17 12:00 98.8 88 18 178/102 (127) 95 03/16/17 08:00 97.5 89 20 182/100 (127) 94 03/16/17 04:55 152/94 (113) 03/16/17 04:00 97.9 98 24 173/101 (125) 96 03/16/17 00:00 Nasal Cannula 2.00 03/16/17 00:00 98.3 88 20 152/97 (115) 97 03/15/17 20:00 Nasal Cannula 2.00 03/15/17 20:00 77 03/15/17 20:00 98.8 89 20 135/82 (99) 98 03/15/17 16:00 98.3 90 18 122/71 (88) 96 I/O 03/15/17 03/15/17 03/15/17 03/16/17 03/16/17 03/16/17 07:00 15:00 23:00 07:00 15:00 23:00 Intake Total 1044 ml 1720 ml 2000 ml 1240 ml 476 ml Output Total 650 ml Balance 1044 ml 1070 ml 2000 ml 1240 ml 476 ml Intake Oral 180 ml 725 ml 240 ml 476 ml IV Total 864 ml 995 ml 2000 ml 1000 ml Output Urine Total 650 ml # Voids 2 2 1 2 # Bowel Movements 0 1 1 1 2 Result Diagram: 03/15/17 0520 03/16/17 0810 Objective Remarks GENERAL: Lying in bed. Sleeping, wakes up for exam. Patient with tardive dyskinesia upon waking up Appears comfortable. SKIN: Warm and dry. HEAD: Normocephalic. EYES: No scleral icterus. No injection or drainage. NECK: Supple, trachea midline. No JVD. CARDIOVASCULAR: Regular rate and rhythm without murmurs, gallops, or rubs. RESPIRATORY: Breath sounds equal bilaterally. No accessory muscle use. GASTROINTESTINAL: Abdomen soft, non-tender, nondistended. MUSCULOSKELETAL: No cyanosis, or edema. BACK: Nontender without obvious deformity. No CVA tenderness. A/P Assessment and Plan //Rhabdomyolysis - unclear etiology possibly secondary to dehydration versus drug effect. We'll continue with IV fluids. Renal function is stable. Trend total CK. = 03/16. CK improved 2300, however not markedly improved from yesterday. Patient is on IM, as well as by mouth antipsychotics. She does not meet criteria at this time for neuroleptic malignant syndrome. Continue to monitor. Nursing to confirm home med list with family and pharmacy today. We'll consult neurology //Transaminitis - appears to be a chronic issue for her. Denies history of alcohol use. She does have hepatitis C virus. We'll repeat labs in the morning. = 03/16. LFTs are stable. This is likely in part artifactual from CK elevation. Continue to monitor. Check ammonia level. //Generalized weakness with poor balance. - Consult physical therapy. She may require alf facility. Appreciate assistance //Hypokalemia and hypocalcemia - we'll continue repletion and follow electrolytes. //HTN -uncontrolled. cont lisinopril and prazosin. //Chronic Pain hip/ neck - use Lortab as needed for pain. //Schizoaffective disorder and history of psychosis with psychiatric hospitalizations - noncompliant with medications. Denies suicidal homicidal ideation or hallucinations. Patient has elevated LFTs as well as rhabdomyolysis. Will consult psychiatry for assistance with her psychiatric medications. //Probable tardive dyskinesia of the neck. //Thrombocytopenia - appears to be dating back to 2016. Monitor CBC. //Remote history of cocaine use - check urine drug screen.shoulder //DVT prophylaxis with SCDs Discharge Planning Need for improvement with CK. Suman Monge MD Mar 16, 2017 14:02
[2017-03-16] MEDS: SODIUM BICARBONATE 8.4% INJ 150 MEQ in WATER STERILE FOR INJ 850 ML IV SCH (16:27)
[2017-03-16] MEDS ORDERED: ENALAPRILAT 1.25 MG/ML VIAL IV PUSH PRN (19:00)
[2017-03-16] MEDS ORDERED: NIFEdipine 30 MG SUSTAINED RELEASE TAB PO ONE (20:00)
[2017-03-17] VITALS: BP 164/82; PULSE 96; RESP 24; TEMP 98.3; O2SAT 97
[2017-03-17] MEDS: SODIUM BICARBONATE 8.4% INJ 150 MEQ in WATER STERILE FOR INJ 850 ML IV SCH ×4 (01:10→17:50)
[2017-03-17 04:00] VITALS: BP 134/78; PULSE 108; RESP 24; TEMP 99.2; O2SAT 95
[2017-03-17 06:31] LABS: AUTOMATED NEUTROPHIL # 3.7 TH/MM3 (1.8-7.7); BASOPHIL % 0.7 % (0.0-2.0); EOSINOPHIL # 0.2 TH/MM3 (0-0.4); EOSINOPHIL % 3.2 % (0.0-4.0); HEMATOCRIT 34.8 % (35.0-46.0); HEMO FLAGS DIFF FINAL; LYMPH % 16.4 % (9.0-44.0); LYMPHOCYTE # 0.8 TH/MM3 (1.0-4.8); MEAN CELL VOLUME 92.3 FL (80.0-100.0); MEAN CORPUSCULAR HEMOGLOBIN 31.5 PG (27.0-34.0); MEAN CORPUSCULAR HGB CONC 34.1 % (32.0-36.0); MONO % 7.8 % (0.0-8.0); NEUT % 71.9 % (16.0-70.0); PLATELET COUNT 105 TH/MM3 (150-450); RED BLOOD COUNT 3.77 MIL/MM3 (4.00-5.30); RED CELL DISTRIBUTION WIDTH 13.5 % (11.6-17.2); WHITE BLOOD COUNT 5.1 TH/MM3 (4.0-11.0)
[2017-03-17 07:10] LABS: BICARBONATE 29.5 MEQ/L (21.0-32.0); MAGNESIUM 1.5 MG/DL (1.5-2.5); POTASSIUM 3.4 MEQ/L (3.5-5.1)
[2017-03-17 07:31] LABS: CKMB 2.9 NG/ML (0.5-3.6)
[2017-03-17 08:00] VITALS: BP 168/86; PULSE 89; RESP 20; TEMP 98.1; O2SAT 97
[2017-03-17] MEDS ORDERED: WALKER WHEELS/F1 MIS (08:43)
[2017-03-17] MEDS: CALCIUM CARBONATE 1.25 GM (CA 500 MG) TAB PO SCH ×2 (09:12→21:49)
[2017-03-17] MEDS: ESCITALOPRAM OXALATE 10 MG TAB PO SCH (09:12)
[2017-03-17] MEDS: PRAZOSIN HCL 1 MG CAP PO SCH ×2 (09:13→21:49)
[2017-03-17] MEDS: LISINOPRIL 20 MG TAB PO SCH (09:13)
[2017-03-17] MEDS: NIFEdipine 30 MG SUSTAINED RELEASE TAB PO SCH (09:13)
[2017-03-17] MEDS: SODIUM CHLORIDE 0.9% FLUSH 10 ML FLUSH IV FLUSH SCH ×2 (09:14→21:00)
[2017-03-17 12:00] VITALS: BP 157/84; PULSE 100; RESP 20; TEMP 99; O2SAT 95
[2017-03-17] MEDS ORDERED: MAGNESIUM SULFATE 1 GM PREMIX 100 ML IV ONE (13:15)
[2017-03-17] MEDS ORDERED: BENZTROPINE MESYLATE 1 MG TAB PO ONE (13:15)
--- NOTE | 2017-03-17 13:25 | HHI.PR ---
Subjective Remarks Interviewed using over the phone manager spring. Patient continues report left shoulder pain worse with movement today, as well as left hip pain unchanged yesterday. She says she feels like she will be able to go home with son tomorrow. Denies any chest pain. Objective Vital Signs Date Time Temp Pulse Resp B/P (MAP) Pulse Ox O2 Delivery O2 Flow Rate FiO2 03/17/17 12:00 99.0 100 20 157/84 (108) 95 03/17/17 08:00 98.1 89 20 168/86 (113) 97 03/17/17 07:44 97 03/17/17 04:00 99.2 108 24 134/78 (96) 95 03/17/17 00:00 98.3 96 24 164/82 (109) 97 03/16/17 20:58 Nasal Cannula 2.00 03/16/17 20:00 101 03/16/17 20:00 98.9 90 24 176/87 (116) 96 03/16/17 16:00 97.9 90 16 187/109 (135) 95 03/16/17 14:00 Nasal Cannula 2.00 96 I/O 03/16/17 03/16/17 03/16/17 03/17/17 03/17/17 03/17/17 07:00 15:00 23:00 07:00 15:00 23:00 Intake Total 1240 ml 1351 ml 536 ml 2387 ml Output Total 400 ml Balance 1240 ml 1351 ml 536 ml 1987 ml Intake Oral 240 ml 476 ml 236 ml 600 ml IV Total 1000 ml 875 ml 300 ml 1787 ml Output Urine Total 400 ml # Voids 1 3 1 # Bowel Movements 1 2 3 Result Diagram: 03/17/1752603/17/17526 Objective Remarks GENERAL: Lying in bed. Patient with tardive dyskinesia upon waking up Appears comfortable. No change on exam SKIN: Warm and dry. HEAD: Normocephalic. EYES: No scleral icterus. No injection or drainage. NECK: Supple, trachea midline. No JVD. CARDIOVASCULAR: Regular rate and rhythm without murmurs, gallops, or rubs. RESPIRATORY: Breath sounds equal bilaterally. No accessory muscle use. GASTROINTESTINAL: Abdomen soft, non-tender, nondistended. MUSCULOSKELETAL: No cyanosis, or edema. BACK: Nontender without obvious deformity. No CVA tenderness. A/P Assessment and Plan //Rhabdomyolysis - unclear etiology possibly secondary to dehydration versus drug effect. We'll continue with IV fluids. Renal function is stable. Trend total CK. = 03/16. CK improved 2300, however not markedly improved from yesterday. Patient is on IM, as well as by mouth antipsychotics. She does not meet criteria at this time for neuroleptic malignant syndrome. Continue to monitor. Nursing to confirm home med list with family and pharmacy today. We'll consult neurology = 03/17. CK improving. 1451 today. Likely CK secondary to muscle injury from fall. No need for neurology consult. Continue IV fluids with bicarbonate. //Transaminitis - appears to be a chronic issue for her. Denies history of alcohol use. She does have hepatitis C virus. We'll repeat labs in the morning. = 03/16. LFTs are stable. This is likely in part artifactual from CK elevation. Continue to monitor. Check ammonia level. //03/17. Ammonia level 43. Patient alert and oriented 4. //Generalized weakness with poor balance. -Continue with physical therapy. She may require intermediate facility. Appreciate assistance //Hypokalemia and hypocalcemia - we'll continue repletion and follow electrolytes. //HTN -uncontrolled. cont lisinopril and prazosin. = 03/17. Improved with addition of nifedipine. Continue to monitor. //Chronic Pain hip/ neck - use Lortab as needed for pain. //Schizoaffective disorder and history of psychosis with psychiatric hospitalizations - noncompliant with medications. Denies suicidal homicidal ideation or hallucinations. Patient has elevated LFTs as well as rhabdomyolysis. Will consult psychiatry for assistance with her psychiatric medications. -We'll continue Haldol monthly at discharge. Appreciate psychiatry assistance. //Probable tardive dyskinesia of the neck. -Start benztropine as per psychiatry assistance. Appreciate assistance. //Thrombocytopenia - appears to be dating back to 2015. Monitor CBC. = 03/17. Platelets 105. No signs of bleeding. Continue to monitor. //Remote history of cocaine use -urine drug screen negative. //Hypokalemia. Potassium. Replace as needed. Continue to monitor. //DVT prophylaxis with SCDs. Discharge Planning Possible discharge tomorrow. SNF versus home. Suman Monge MD Mar 17, 2017 13:25
[2017-03-17] MEDS ORDERED: NALOXONE HCL 0.4 MG/ML AMP IV PUSH PRN (13:30)
[2017-03-17 13:42] LABS: INDIRECT BILIRUBIN 0.8 MG/DL (0.0-0.8); TOTAL BILIRUBIN ADULT 1.2 MG/DL (0.2-1.0)
[2017-03-17] MEDS ORDERED: POTASSIUM CHLORIDE 10 MEQ CONTROLLED RELEASE TAB PO ONE (13:45)
[2017-03-17 16:40] LABS: INTERNATIONAL NORMALIZED RATIO 1.2 RATIO; PROTHROMBIN TIME - PATIENT 13.9 SEC (9.8-11.6)
[2017-03-17 20:00] VITALS: BP 107/63; PULSE 80; PULSE 92; RESP 18; TEMP 97.8; O2SAT 96
[2017-03-18] VITALS (7 sets, daily range): BP systolic 107–138; BP diastolic 63–83; PULSE 65–85; RESP 18–20; TEMP 97.5–98.8; O2SAT 91–96
[2017-03-18] MEDS: SODIUM BICARBONATE 8.4% INJ 150 MEQ in WATER STERILE FOR INJ 850 ML IV SCH (03:08)
[2017-03-18 06:49] LABS: AUTOMATED NEUTROPHIL # 3.7 TH/MM3 (1.8-7.7); BASOPHIL % 0.2 % (0.0-2.0); EOSINOPHIL # 0.1 TH/MM3 (0-0.4); EOSINOPHIL % 2.8 % (0.0-4.0); HEMATOCRIT 34.4 % (35.0-46.0); HEMO FLAGS DIFF FINAL; LYMPH % 15.3 % (9.0-44.0); LYMPHOCYTE # 0.8 TH/MM3 (1.0-4.8); MEAN CELL VOLUME 92.3 FL (80.0-100.0); MEAN CORPUSCULAR HEMOGLOBIN 31.4 PG (27.0-34.0); MEAN CORPUSCULAR HGB CONC 34.1 % (32.0-36.0); MONO % 9.2 % (0.0-8.0); NEUT % 72.5 % (16.0-70.0); PLATELET COUNT 107 TH/MM3 (150-450); RED BLOOD COUNT 3.73 MIL/MM3 (4.00-5.30); RED CELL DISTRIBUTION WIDTH 13.2 % (11.6-17.2); WHITE BLOOD COUNT 5.1 TH/MM3 (4.0-11.0)
[2017-03-18 07:15] LABS: BICARBONATE 35.8 MEQ/L (21.0-32.0); INDIRECT BILIRUBIN 0.9 MG/DL (0.0-0.8); MAGNESIUM 1.7 MG/DL (1.5-2.5); TOTAL BILIRUBIN ADULT 1.3 MG/DL (0.2-1.0)
[2017-03-18 07:26] LABS: POTASSIUM 2.9 MEQ/L (3.5-5.1)
[2017-03-18 08:24] LABS: CKMB 1.4 NG/ML (0.5-3.6)
[2017-03-18] MEDS: BENZTROPINE MESYLATE 1 MG TAB PO SCH ×2 (09:00→20:41)
[2017-03-18] MEDS ORDERED: MAGNESIUM SULFATE 1 GM PREMIX 100 ML IV ONE (09:30)
[2017-03-18] MEDS ORDERED: POTASSIUM CHLORIDE 10 MEQ CONTROLLED RELEASE TAB PO ONE (09:30)
[2017-03-18] MEDS: SODIUM CHLORIDE 0.9% FLUSH 10 ML FLUSH IV FLUSH SCH ×2 (10:00→20:41)
[2017-03-18] MEDS: NIFEdipine 30 MG SUSTAINED RELEASE TAB PO SCH (10:01)
[2017-03-18] MEDS: LISINOPRIL 20 MG TAB PO SCH (10:01)
[2017-03-18] MEDS: NS + KCL 20 MEQ INJ 1,000 ML IV SCH ×2 (10:01→20:50)
[2017-03-18] MEDS: CALCIUM CARBONATE 1.25 GM (CA 500 MG) TAB PO SCH ×2 (10:01→20:40)
[2017-03-18] MEDS: PRAZOSIN HCL 1 MG CAP PO SCH ×2 (10:02→20:41)
[2017-03-18] MEDS: ESCITALOPRAM OXALATE 10 MG TAB PO SCH (10:02)
--- NOTE | 2017-03-18 18:51 | HHI.PR ---
Subjective Remarks using phone finish repairer. Patient today reports multiple episodes of loose watery diarrhea with cramping abdominal pain over the past day. Denies any chest pain or shortness of breath. Objective Vital Signs Date Time Temp Pulse Resp B/P (MAP) Pulse Ox O2 Delivery O2 Flow Rate FiO2 03/18/17 16:00 97.7 65 18 128/80 (96) 95 03/18/17 12:46 Nasal Cannula 2.00 28 03/18/17 12:26 98.5 83 18 131/74 (93) 91 03/18/17 08:27 97.5 81 18 138/83 (101) 94 03/18/17 04:00 97.8 78 18 135/77 (96) 96 03/18/17 00:00 97.8 80 18 137/74 (95) 96 03/17/17 22:50 18 03/17/17 20:00 95 Nasal Cannula 2.00 28 03/17/17 20:00 92 03/17/17 20:00 97.8 80 18 107/63 (78) 96 I/O 03/17/17 03/17/17 03/17/17 03/18/17 03/18/17 03/18/17 07:00 15:00 23:00 07:00 15:00 23:00 Intake Total 2387 ml 360 ml 100 ml 1811 ml 120 ml Output Total 400 ml 4 ml Balance 1987 ml 360 ml 100 ml 1807 ml 120 ml Intake Oral 600 ml 360 ml 480 ml 120 ml IV Total 1787 ml 100 ml 1331 ml Output Urine Total 400 ml 4 ml # Voids 3 9 3 # Bowel Movements 3 1 1 2 1 Result Diagram: 03/18/17 0454 03/18/17 0454 Objective Remarks GENERAL: Lying in bed. Tardive dyskinesia appears improved somewhat today. SKIN: Warm and dry. HEAD: Normocephalic. EYES: No scleral icterus. No injection or drainage. NECK: Supple, trachea midline. No JVD. CARDIOVASCULAR: Regular rate and rhythm without murmurs, gallops, or rubs. RESPIRATORY: Breath sounds equal bilaterally. No accessory muscle use. GASTROINTESTINAL: Abdomen soft, non-tender, nondistended. Positive bowel sounds. No rebound or guarding. MUSCULOSKELETAL: No cyanosis, or edema. BACK: Nontender without obvious deformity. No CVA tenderness. A/P Assessment and Plan //Rhabdomyolysis - unclear etiology possibly secondary to dehydration versus drug effect. We'll continue with IV fluids. Renal function is stable. Trend total CK. = 03/16. CK improved 2300, however not markedly improved from yesterday. Patient is on IM, as well as by mouth antipsychotics. She does not meet criteria at this time for neuroleptic malignant syndrome. Continue to monitor. Nursing to confirm home med list with family and pharmacy today. We'll consult neurology = 03/17. CK improving. 1451 today. Likely CK secondary to muscle injury from fall. No need for neurology consult. Continue IV fluids with bicarbonate. = 03/18. CK continues improving 755 today. Switch IV fluids to normal saline. Expecting continued improvement. Patient should discharge home tomorrow only on once monthly IM Haldol. //Diarrhea. Abdominal exam benign. Check C. difficile. Could be antibiotic associated diarrhea. //Transaminitis - appears to be a chronic issue for her. Denies history of alcohol use. She does have hepatitis C virus. We'll repeat labs in the morning. = 03/16. LFTs are stable. This is likely in part artifactual from CK elevation. Continue to monitor. Check ammonia level. //03/17. Ammonia level 43. Patient alert and oriented 4. = Continues improving. //Generalized weakness with poor balance. -Continue with physical therapy. She may require fdc facility. Appreciate assistance = Strength continues improving. May be able to go home tomorrow with son. //Hypokalemia and hypocalcemia - we'll continue repletion and follow electrolytes. = Potassium 2.9. Replaced again. //HTN -uncontrolled. cont lisinopril and prazosin. = 03/17. Improved with addition of nifedipine. Continue to monitor. //Chronic Pain hip/ neck - use Lortab as needed for pain. //Schizoaffective disorder and history of psychosis with psychiatric hospitalizations - noncompliant with medications. Denies suicidal homicidal ideation or hallucinations. Patient has elevated LFTs as well as rhabdomyolysis. Will consult psychiatry for assistance with her psychiatric medications. -We'll continue Haldol monthly at discharge. Appreciate psychiatry assistance. //Probable tardive dyskinesia of the neck. -cont benztropine as per psychiatry assistance. Appreciate assistance. //Thrombocytopenia - appears to be dating back to 2015. Monitor CBC. = Platelet stable 107. Continue to monitor. //Remote history of cocaine use -urine drug screen negative. //DVT prophylaxis with SCDs. Discharge Planning Strength improving. Delayed discharge due to hypo-kalemia, diarrhea. C. difficile pending. Suman Monge MD Mar 18, 2017 18:51
[2017-03-18] MEDS ORDERED: LORazepam 1 MG TAB PO ONE (19:00)
[2017-03-19] VITALS: BP 115/71; PULSE 88; RESP 20; TEMP 97.6; O2SAT 96
[2017-03-19 07:27] LABS: AUTOMATED NEUTROPHIL # 3.8 TH/MM3 (1.8-7.7); BASOPHIL % 0.4 % (0.0-2.0); EOSINOPHIL # 0.2 TH/MM3 (0-0.4); EOSINOPHIL % 3.8 % (0.0-4.0); HEMATOCRIT 36.3 % (35.0-46.0); HEMO FLAGS DIFF FINAL; LYMPHOCYTE # 0.7 TH/MM3 (1.0-4.8); MEAN CELL VOLUME 92.8 FL (80.0-100.0); MEAN CORPUSCULAR HGB CONC 33.4 % (32.0-36.0); MONO % 8.5 % (0.0-8.0); NEUT % 74.3 % (16.0-70.0); PLATELET COUNT 111 TH/MM3 (150-450); RED BLOOD COUNT 3.91 MIL/MM3 (4.00-5.30); RED CELL DISTRIBUTION WIDTH 13.3 % (11.6-17.2); WHITE BLOOD COUNT 5.1 TH/MM3 (4.0-11.0)
[2017-03-19 08:00] VITALS: BP 152/75; PULSE 75; PULSE 82; RESP 16; TEMP 98.1; O2SAT 93
[2017-03-19 08:07] LABS: BICARBONATE 27.9 MEQ/L (21.0-32.0); MAGNESIUM 1.7 MG/DL (1.5-2.5); POTASSIUM 3.7 MEQ/L (3.5-5.1)
[2017-03-19] MEDS: ESCITALOPRAM OXALATE 10 MG TAB PO SCH (08:14)
[2017-03-19] MEDS: CALCIUM CARBONATE 1.25 GM (CA 500 MG) TAB PO SCH (08:14)
[2017-03-19] MEDS: NIFEdipine 30 MG SUSTAINED RELEASE TAB PO SCH (08:15)
[2017-03-19] MEDS: PRAZOSIN HCL 1 MG CAP PO SCH (08:15)
[2017-03-19] MEDS: LISINOPRIL 20 MG TAB PO SCH (08:15)
[2017-03-19] MEDS: BENZTROPINE MESYLATE 1 MG TAB PO SCH (08:15)
[2017-03-19] MEDS: NS + KCL 20 MEQ INJ 1,000 ML IV SCH (08:16)
[2017-03-19] MEDS: SODIUM CHLORIDE 0.9% FLUSH 10 ML FLUSH IV FLUSH SCH (09:00)
[2017-03-19 12:00] VITALS: BP 143/80; PULSE 68; RESP 16; TEMP 97.9; O2SAT 94
[2017-03-19 12:39] LABS: C. DIFF EPI 027 PRESUMPTIVE NEGATIVE (NEGATIVE)
[2017-03-19] MEDS ORDERED: NIFE30TA8 PO (13:52)
--- NOTE | 2017-03-19 13:53 | HHI.DCPOC ---
Discharge Care Plan Diagnosis: (1) Rhabdomyolysis (2) Generalized weakness Goals to Promote Your Health * To prevent worsening of your condition and complications * To maintain your health at the optimal level Directions to Meet Your Goals Take your medications as prescribed Follow your dietary instruction Follow activity as directed Keep your appointments as scheduled Take your immunizations and boosters as scheduled If your symptoms worsen call your PCP, if no PCP go to Urgent Care Center or Emergency Room Smoking is Dangerous to Your Health. Avoid second hand smoke Call the 24-hour hour crisis hotline for domestic abuse at [facility] Mar 19, 2017 13:53
--- NOTE | 2017-03-19 14:05 | HHI.DS ---
Discharge Summary Admission Date Mar 14, 2017 at 22:32 Discharge Date: Mar 19, 2017 Admitting Diagnosis (1) Disequilibrium ICD Code: R42 - Dizziness and giddiness Status: Acute (2) Rhabdomyolysis ICD Code: M62.82 - Rhabdomyolysis Status: Acute (3) Transaminitis ICD Code: R74.0 - Nonspecific elevation of levels of transaminase and lactic acid dehydrogenase [LDH] Status: Acute (4) Hypokalemia ICD Code: E87.6 - Hypokalemia Status: Acute (5) Hypocalcemia ICD Code: E83.51 - Hypocalcemia Status: Acute (6) Thrombocytopenia ICD Code: D69.6 - Thrombocytopenia, unspecified (7) Tardive dyskinesia ICD Code: G24.01 - Drug induced subacute dyskinesia (8) HTN (hypertension) ICD Code: I10 - Essential (primary) hypertension Status: Chronic (9) Schizoaffective disorder, bipolar type ICD Code: F25.0 - Schizoaffective disorder, bipolar type Status: Acute (10) Fall ICD Code: W19.XXXA - Unspecified fall, initial encounter (11) Generalized weakness ICD Code: R53.1 - Weakness Procedures None Brief History - From Admission This is a 62-year-old female with past medical history schizoaffective disorder, hypertension who presented to the ER for evaluation of falling times twice. Patient is [place]-speaking. Per the ER documentation she also had altered mental status however the patient denies any confusion. The patient complains of left shoulder pain left arm pain. She fell twice. She denied any head trauma. She did have a headache yesterday but it is resolved today. The patient lives with her son. She is supposed to be on Haldol however the patient states she does not take it as she does not think she has schizoaffective disorder. The patient denies drug use or alcohol use. Patient denies chest pain or pressure. No syncope. No pedal edema. Denies shortness of breath. Denies fever or chills. Patient states she has poor balance and cannot walk well. Patient was found to have elevation of creatinine kinase as well as hypokalemia in the emergency department. Imaging of her chest spine hips and left shoulder were all negative for acute findings. Patient was admitted to the hospital for rhabdomyolysis. CBC/BMP: 03/19/17 0629 03/19/17 0629 Significant Findings Laboratory Tests Test 03/16/17 14:05 03/17/17 05:27 03/17/17 15:53 03/18/17 04:54 Ammonia 43 MCMOL/L (11-32) Red Blood Count 3.77 MIL/MM3 (4.00-5.30) 3.73 MIL/MM3 (4.00-5.30) Hematocrit 34.8 % (35.0-46.0) 34.4 % (35.0-46.0) Platelet Count 105 TH/MM3 (150-450) 107 TH/MM3 (150-450) Neutrophils (%) (Auto) 71.9 % (16.0-70.0) 72.5 % (16.0-70.0) Lymphocytes # (Auto) 0.8 TH/MM3 (1.0-4.8) 0.8 TH/MM3 (1.0-4.8) Albumin 2.4 GM/DL (3.4-5.0) 2.3 GM/DL (3.4-5.0) Calcium Level 7.6 MG/DL (8.5-10.1) 7.6 MG/DL (8.5-10.1) Phosphorus Level 2.3 MG/DL (2.5-4.9) Potassium Level 3.4 MEQ/L (3.5-5.1) 2.9 MEQ/L (3.5-5.1) Estimat Glomerular Filtration Rate 76 ML/MIN (>89) 83 ML/MIN (>89) Total Bilirubin 1.2 MG/DL (0.2-1.0) 1.3 MG/DL (0.2-1.0) Direct Bilirubin 0.4 MG/DL (0.0-0.2) 0.4 MG/DL (0.0-0.2) Aspartate Amino Transf (AST/SGOT) 150 U/L (15-37) 128 U/L (15-37) Alanine Aminotransferase (ALT/SGPT) 95 U/L (10-53) 89 U/L (10-53) Total Creatine Kinase 1451 U/L (26-192) 755 U/L (26-192) Total Protein 6.0 GM/DL (6.4-8.2) 5.8 GM/DL (6.4-8.2) Prothrombin Time 13.9 SEC (9.8-11.6) Monocytes (%) (Auto) 9.2 % (0.0-8.0) Chloride Level 95 MEQ/L (98-107) Carbon Dioxide Level 35.8 MEQ/L (21.0-32.0) Indirect Bilirubin 0.9 MG/DL (0.0-0.8) Test 03/19/17 06:29 03/19/17 08:50 Red Blood Count 3.91 MIL/MM3 (4.00-5.30) Platelet Count 111 TH/MM3 (150-450) Neutrophils (%) (Auto) 74.3 % (16.0-70.0) Monocytes (%) (Auto) 8.5 % (0.0-8.0) Lymphocytes # (Auto) 0.7 TH/MM3 (1.0-4.8) Albumin 2.6 GM/DL (3.4-5.0) Calcium Level 7.9 MG/DL (8.5-10.1) Estimat Glomerular Filtration Rate 82 ML/MIN (>89) Hospital Course Rhabdomyolysis - unclear etiology possibly secondary to dehydration versus drug effect. Continue to trend CPK which went down nicely after adjustments of her home medications and antipsychotic medications Diarrhea. Abdominal exam was benign. C. difficile culture was negative. Likely antibiotic associated diarrhea. Continue probiotic Transaminitis - appears to be a chronic issue for her. Denies history of alcohol use. She does have hepatitis C virus. Trending liver enzyme appear to be improving Generalized weakness with poor balance. - Physical therapy indicates that patient is walking 180 feet with light contact is standby assist Will plan discharge home with nursing care and physical therapy Electrolyte abnormalities with Hypokalemia and hypocalcemia we'll continue repletion and follow electrolytes. Hypertension-uncontrolled. Home medications continued cont lisinopril and prazosin. addition of nifedipine. Chronic Pain hip/ neck - use Lortab as needed for pain. Schizoaffective disorder and history of psychosis with psychiatric hospitalizations - noncompliant with medications. Denies suicidal homicidal ideation or hallucinations. Psychiatric consulted and made recommendations Probable tardive dyskinesia of neck. cont benztropine as per psychiatry assistance. Thrombocytopenia - This appears to be chronic likely secondary to hepatitis C Remote history of cocaine use urine drug screen negative. Pt Condition on Discharge: Stable Discharge Disposition: Disch w/ Home Health Serv Discharge Time: > 30 minutes Discharge Instructions DIET: Follow Instructions for: Heart Healthy Diet Activities you can perform: Regular-No Restrictions Activities to Avoid: Driving for 24 hrs Follow up Referrals: PCP Follow-up - 1 Week New Medications: Walker with Front Wheels (Walker with Front Wheels) 1 Mis Mis EA .ROUTE DIRECTED, #1 0 Refills Nifedipine ER 24 HR (Nifedipine ER 24 HR) 30 Mg Tab 30 MG PO DAILY for Blood Pressure Management for 30 Days, #30 TAB Continued Medications: Escitalopram (Escitalopram) 10 Mg Tab 10 MG PO DAILY for health, #30 TAB 0 Refills Haloperidol Decanoate Inj (Haldol Decanoate Inj) 50 Mg/Ml Inj 100 MG IM Q28D for health, #1 INJECTION 0 Refills Next injection due 09/01/16 Lisinopril (Lisinopril) 20 Mg Tab 20 MG PO DAILY for health, #30 TAB 0 Refills Prazosin (Minipress) 1 Mg Cap 2 MG PO Q12HR for health, #60 CAP 0 Refills Discontinued Medications: Haloperidol (Haloperidol) 10 Mg Tab 10 MG PO BID for psychosis, #60 TAB Haloperidol Decanoate Inj (Haldol Decanoate Inj) 50 Mg/Ml Inj 100 MG IM Q28D for psychsis for 28 Days, INJECTION Haloperidol (Haloperidol) 10 Mg Tab 10 MG PO BID for health, #60 TAB 0 Refills Prazosin (Minipress) 1 Mg Cap 2 MG PO Q12HR for ptsd, #120 CAP Quetiapine (Quetiapine) 50 Mg Tab 50 MG PO DAILY, #30 TAB 0 Refills [facility] Edwards Mar 19, 2017 14:05
[2017-03-19] MEDS ORDERED: Benztropine PO (14:06)
== END 2017-03-19 17:08 | disposition home health service (06) | DRG 558 ==
LOC: NED 22:31 → PH3B 22:32
PROVIDERS: ADMIT Hospitalist; ATTEND Hospitalist
DX: M62.82 Rhabdomyolysis (principal); D69.6 Thrombocytopenia, unspecified; K52.1 Toxic gastroenteritis and colitis; E83.51 Hypocalcemia; F25.0 Schizoaffective disorder, bipolar type; I10 Essential (primary) hypertension; E87.6 Hypokalemia; B19.20 Unspecified viral hepatitis C without hepatic coma; G89.29 Other chronic pain; J44.9 Chronic obstructive pulmonary disease, unspecified; F17.210 Nicotine dependence, cigarettes, uncomplicated; R74.0 Nonspecific elevation of levels of transaminase and lactic acid dehydrogenase [LDH]; R42 Dizziness and giddiness; G24.01 Drug induced subacute dyskinesia; R53.1 Weakness; Z91.14 Patient's other noncompliance with medication regimen; Z91.81 History of falling; T36.95XA Adverse effect of unspecified systemic antibiotic, initial encounter; Y92.239 Unspecified place in hospital as the place of occurrence of the external cause; Z87.440 Personal history of urinary (tract) infections; Z98.1 Arthrodesis status
CPT/HCPCS: 70450; 71010; 72125; 73030; 73502; 80053; 80069; 80076; 80307; 81001; 82140; 82550; 82552; 83735; 84484; 85025; 85610; 85730; 87493; 93005; 94664; 96361; 96374; 96375; 96376; J2270; J2405; J3475; J3480; J7040